=== PATIENT | female | born 1995 | race Caucasian/White ===

== ENCOUNTER 2017-01-02 18:25 | Observation (INO) | payer OTHER ==
--- NOTE | 2017-01-02 19:06 | ER Document Report ---
Addendum entered and electronically signed by KURTIS GILMAN PA-C 01/02/17 19: 18: Course - Re-evaluation Re-evalutation: 01/02/17 19:08 AMS oriented to person, not oriented to place or time. patient with equal strength, can follow directions and answers to name - Vital Signs Vital signs: Temp Pulse Resp BP Pulse Ox 70 24 H 136/98 H 99 01/02/17 18:53 01/02/17 18:53 01/02/17 18:53 01/02/17 18:53 Original Note: ED Medical Screen (RME) - General Stated Complaint: HEAD/BACK PAIN Notes: 3 weeks ago has been in [facility], back pain now with extremity numbness she has had a recent lumbar puncture 2/ to eval for meningitis which was negative. patient now with worsening headaches that are refractory to medications I have greeted and performed a rapid initial assessment of this patient. A comprehensive ED assessment and evaluation of the patient, analysis of test results and completion of the medical decision making process will be conducted by additional ED providers. - Related Data Allergies/Adverse Reactions: No Known Allergies Allergy (Unverified 01/02/17 18:58) Physical Exam - Vital signs Vitals: Pulse Resp BP Pulse Ox 70 24 H 136/98 H 99 01/02/17 18:53 01/02/17 18:53 01/02/17 18:53 01/02/17 18:53 Course - Vital Signs Vital signs: Temp Pulse Resp BP Pulse Ox 70 24 H 136/98 H 99 01/02/17 18:53 01/02/17 18:53 01/02/17 18:53 01/02/17 18:53
[2017-01-02] MEDS ORDERED: ONDANSETRON HCL INJ/PF 4 MG/2 ML SDV IV ONE (19:16)
[2017-01-02] MEDS ORDERED: HYDROMORPHONE HCL INJ/PF 2 MG/ML AMPULE IV ONE (19:16)
[2017-01-02 19:38] LABS: ABSOLUTE EOSINOPHILS # (AUTO) 0.1 10^3/uL (0.0-0.6); ABSOLUTE LYMPHOCYTES (AUTO) 1.7 10^3/uL (0.5-4.7); ABSOLUTE MONOCYTES (AUTO) 0.5 10^3/uL (0.1-1.4); ABSOLUTE NEUT (AUTO) 6.8 10^3/uL (1.7-8.2); BASOPHILS % (AUTO) 0.4 % (0-2); EOSINOPHILS % (AUTO) 0.7 % (0-6); HEMATOCRIT 46.9 % (36.0-47.0); HEMOGLOBIN 16.1 g/dL (12.0-15.5); HGB HCT DIFFERENCE 1.4; LYMPHOCYTES % (AUTO) 18.8 % (13-45); MEAN CORPUSCULAR HEMOGLOBIN 30.4 pg (27.0-33.4); MEAN CORPUSCULAR HGB CONC 34.3 g/dL (32.0-36.0); MEAN CORPUSCULAR VOLUME 89 fl (80-97); MONOCYTES % (AUTO) 5.9 % (3-13); RED BLOOD COUNT 5.29 10^6/uL (3.72-5.28); RED CELL DISTRIBUTION WIDTH 12.9 % (11.5-14.0); SEGMENTED NEUTROPHILS % (AUTO) 74.2 % (42-78); WHITE BLOOD COUNT 9.1 10^3/uL (4.0-10.5)
[2017-01-02 20:00] LABS: ALANINE AMINOTRANSFERASE 25 U/L (9-52); ALBUMIN 4.3 g/dL (3.5-5.0); ALKALINE PHOSPHATASE 64 U/L (38-126); ANION GAP 11 (5-19); ASPARTATE AMINO TRANSFERASE 14 U/L (14-36); BILIRUBIN,TOTAL 0.5 mg/dL (0.2-1.3); BLOOD UREA NITROGEN 17 mg/dL (7-20); CALCIUM 9.9 mg/dL (8.4-10.2); CARBON DIOXIDE 30 mmol/L (22-30); CHLORIDE 97 mmol/L (98-107); CREATININE RESULT 0.77 mg/dL (0.52-1.25); GLUCOSE 125 mg/dL (75-110); POTASSIUM 4.1 mmol/L (3.6-5.0); SODIUM 138.3 mmol/L (137-145); TOTAL PROTEIN 7.4 g/dL (6.3-8.2)
[2017-01-02] MEDS ORDERED: KETAMINE HCL INJ 500 MG/10 ML VIAL IV ONE (22:13)
[2017-01-02] MEDS ORDERED: NORMAL SALINE 1000 ML 1,000 ML IV ONE (22:25)
[2017-01-03] MEDS ORDERED: FENTANYL CITRATE INJ/PF 100 MCG/2 ML AMPUL IV ONE (01:05)
[2017-01-03] MEDS ORDERED: DEXAMETHASONE SOD PHOS INJ 10 MG/1 ML VIAL IV ONE (01:06)
--- NOTE | 2017-01-03 01:07 | ER Document Report ---
ED General - General Chief Complaint: Headache Stated Complaint: HEAD/BACK PAIN TRAVEL OUTSIDE OF THE [place] IN LAST 30 DAYS: No - Related Data Allergies/Adverse Reactions: Penicillins Allergy (Verified 01/02/17 19:04) Past Medical History - Social History Smoking Status: Never Smoker Chew tobacco use (# tins/day): No Frequency of alcohol use: None Drug Abuse: None Family History: Reviewed & Not Pertinent Patient has suicidal ideation: No Patient has homicidal ideation: No Renal/ Medical History: Denies: Hx Peritoneal Dialysis Physical Exam - Vital signs Vitals: Pulse Resp BP Pulse Ox 70 24 H 136/98 H 99 01/02/17 18:53 01/02/17 18:53 01/02/17 18:53 01/02/17 18:53 Course - Re-evaluation Re-evalutation: 01/03/17 01:06 Despite the ketamine patient still has severe headache. Was able to get an MRV. This was negative for venous sinus thrombosis. I did recommend a MRI with contrast to better evaluate. Patient had an MRI or contrast at [facility] and they did bring the report for that and that was negative. Patient has already had a lumbar puncture which was negative and therefore I do not think repeating a lumbar puncture would be helpful. We'll try fentanyl to see if this helps her headache. I will also give her Decadron. 01/03/17 01:07 - Vital Signs Vital signs: Temp Pulse Resp BP Pulse Ox 70 24 H 136/98 H 99 01/02/17 18:53 01/02/17 18:53 01/02/17 18:53 01/02/17 18:53 - Laboratory Result Diagrams: 01/02/17 19:24 01/02/17 19:24 Laboratory results interpreted by me: 01/02/17 01/02/17 19:24 19:24 RBC 5.29 H Hgb 16.1 H Chloride 97 L Glucose 125 H - Transfer of Care Notes: 01/03/17 04:18 I did speak with the hospitalist, Dr. Romero, about the patient because of her intractable headache. She does have some improvement with medications I've given her. Portal seem to have the most effect on her. She still has headache however and still looks uncomfortable. I did obtain an MRV to rule out venous sinus thrombosis. This is negative but the radiologist still suggested an MRI with contrast to further delineate. She has already had an MRI with contrast and has brought the results with her. This was completely negative and therefore I do not feel that a repeat is needed here. She's had CT scans which have been negative. She did bring her discharge summary from [facility] and it did show the lumbar puncture is being negative as well. I will not repeat the lumbar puncture here. I do not see evidence of neck imaging when reviewing her records from [facility]. I therefore obtained a CT angio of the neck to make sure there is no evidence of dissection of the neck. This was also negative. I suspect the patient has new-onset severe intractable migraines. The medication she is on is obviously currently not working for her. Dr. Romero recommended that I speak with , neurologist, to make sure that he be willing to come in and evaluate the patient if she is admitted. I was able to get in touch with Dr. Hair on his cell phone via the hospital addressing machine operator. I did inform of the patient's case. He said that he would be willing to see the patient in the hospital today via consult. Patient and her are very appreciative of this and agree with plan. Patient will be admitted for further management treatment of her intractable headache. Dictation of this chart was performed using voice recognition software; therefore, there may be some unintended grammatical errors. Discharge - Discharge Clinical Impression: Headache Qualifiers: Headache type: unspecified Headache chronicity pattern: chronic headache Intractability: intractable Qualified Code(s): R51 - Headache Condition: Stable Disposition: ADMITTED OBSERVATION Admitting Provider: Hospitalist Unit Admitted: Telemetry
[2017-01-03] MEDS ORDERED: KETOROLAC TROMETHAMINE INJ/PF 30 MG/1 ML SDV IV ONE (02:05)
[2017-01-03 05:19] LABS: URINE BARBITURATES SCREEN NEGATIVE; URINE METHADONE SCREEN NEGATIVE; URINE OPIATES LOW NEGATIVE; URINE PHENCYCLIDINE SCREEN NEGATIVE
[2017-01-03] MEDS ORDERED: ACETAMINOPHEN 325 MG TABLET PO PRN (05:39)
[2017-01-03] MEDS ORDERED: MAG HYDROX/AL HYDROX/SIMETH SUSP 30 ML UDCUP PO PRN (05:39)
[2017-01-03] MEDS ORDERED: MAGNESIUM HYDROXIDE SUSP 30 ML UDCUP PO PRN (05:39)
[2017-01-03] MEDS ORDERED: IPRATROPIUM/ALBUTEROL 0.5-2.5 MG/3 ML AMPUL NEB PRN (05:39)
[2017-01-03] MEDS ORDERED: OXYCODONE HCL IR 5 MG TABLET PO PRN (05:42)
--- NOTE | 2017-01-03 05:56 | PDOC H&P ---
History of Present Illness Admission Date/PCP: 01/03/17 04:41 Patient complains of: intractable headache History of Present Illness: ZULEIMA BELTRÁN is a 21 year old female, basically healthy other than rare problems with asthma, along with mild eczema, who presents to the emergency room for evaluation of intractable headache. Started approximately 4 weeks ago. Generalized throughout her cranium, with some radiation down her neck. Has had quite extensive workup at , including lumbar puncture and MR studies along with CT scans earlier this week. Please refer to emergency room physician notes concerning the specific studies that have been performed. discharged from earlier this week, with instructions that an outpatient appointment for further neurologic workup would be obtained. Still has not been formalized. Returns to the emergency room tonight with ongoing quite severe pain to the point where she can barely talk at times. No nausea vomiting this week. No fever or chills. No prior head or neck injury. Negative neurologic history otherwise, including seizure stroke TIA or mini stroke. No history of migraines in herself, but father does carry a history of migraines. Patient has been discussed with emergency room physician who evaluated the patient. ER physician also spoke with our on-call neurologist Dr. Hair, who has agreed to see the patient in consultation. . Laboratory results are listed in [facility] and are reviewed. X-ray summary results are listed below, with full report(s) reviewed. . EKG reviewed. And compared to a tracing from 05/06/2014. Social history/personal habits: . No children. 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 states she does not use chemicals. No use of alcohol tobacco or illicit drugs. Allergies/adverse reactions are listed in [facility] and are reviewed. Uncertain reaction to penicillin; occurred as a child. Uncertain if she can tolerate cephalosporins. Home medications none REVIEW OF SYSTEMS: Constitutional: No fever or chills. Eyes: Wears glasses. ENT: No swallowing problems or complaints. No hearing problems or complaints. Pulmonary: No current complaints. Cardiovascular: No current complaints, including chest pain. Gastrointestinal: No current complaints, including nausea or vomiting. Skin: Mild eczema. Hematologic: No unusual easy bruising or bleeding. Neurologic: See history and present illness. Musculoskeletal: No current complaints, including painful joints. Psychiatric: No current complaints, including anxiety or depression. Endocrine: No current complaints, including polyuria. Genitourinary: No current complaints, including dysuria. PHYSICAL EXAMINATION: 5 feet 8 inches tall. 58.2 kg. BMI 19.5 kg/m. Temperature is not recorded on the chart. Pulse 70. Blood pressure 136/98. Respirations are 24 and unlabored. 98% saturation on room air. is present at her side; patient approves. Female emergency room nurse Carla is present. Thin otherwise well-developed young female who appears approximately her stated age. Appears to feel perhaps a bit under the weather, so to speak. Slightly drowsy also. Otherwise, pleasant awake alert and cooperative. Skin is warm and dry. No grossly obvious evidence of rash in areas of skin examined. No subcutaneous nodules palpated. ENT: Hearing grossly normal to normal conversation. Tongue midline on protrusion pink and slightly moist. Eyes: No scleral icterus. Pupils equal and reactive to light at 4 mm. [place] conjunctivae. Neck is supple to gentle active range of motion. Very mild tenderness posteriorly to palpation. Midline trachea. No palpable thyroid nodule mass enlargement or tenderness. Lymphatic: No palpable cervical or clavicular nodes. Psychiatric: Reasonable insight into acute and chronic medical issues. Oriented to time location and why here. Lungs: Auscultation reveals clear and equal breath sounds bilaterally. No use of accessory respiratory muscles. Cardiovascular: Heart regular rate and rhythm, without gallop murmur or rub. No carotid or abdominal aortic bruits. No ankle or pedal edema. palpable dorsalis pedis pulses. Abdomen: soft , slightly distended nontender with positive bowel sounds. Unable to adequately evaluate abdomen for masses or organomegaly due to distention. Extremities: Feet are warm and dry. No calf tenderness to compression. No grossly obvious visual evidence of calf swelling. Gentle manipulation of lower extremities fails to reveal any obvious evidence of injury or instability to knees hips or ankles. Neurologic: Cranial Nerves II through XII are grossly intact. Light touch intact at face, upper and lower extremities. Motor function of major muscle groups upper and lower extremities 5 over 5 and symmetric. Patellar reflexes absent. Absent Babinski. No nystagmus. No ankle clonus. Past Medical History Cardiac Medical History: Denies: Congestive Heart Failure, DVT, Myocardial Infarction, Hyperlipidema, Hypertension, Pulmonary Embolism Pulmonary Medical History: Reports: Asthma EENT Medical History: Reports: Eyes - Glasses Denies: Ears, Throat Neurological Medical History: Reports: Other - Headaches Denies: Hemorrhagic CVA, Ischemic CVA, Seizures Endocrine Medical History: Denies: Diabetes Mellitus Type 1, Diabetes Mellitus Type 2, Hyperthyroidism, Hypothyroidism Renal/ Medical History: Reports: None GI Medical History: Denies: Cirrhosis, Gastroesophageal Reflux Disease, Hepatitis, Peptic Ulcer Disease Musculoskeltal Medical History: Denies: Arthritis Skin Medical History: Reports: Eczema Psychiatric Medical History: Denies: Alcohol Dependency, Depression, General Anxiety Disorder, Substance Abuse, Tobacco Dependency Hematology: Reports: Other - Easy bruising Infectious Medical History: Denies: Hepatitis B, Hepatitis C Past Surgical History Past Surgical History: Reports: Other - [place] teeth extraction Social History Information Source: Patient, Emergency Med Personnel, [facility] Records Lives with: Spouse/Significant other Smoking Status: Never Smoker Frequency of Alcohol Use: None Drugs: None - Advance Directive Resuscitation Status: Full Code Surrogate healthcare decision maker:: Family History Family History: Reviewed & Not Pertinent, Other - Migraine headaches in father Parental Family History Reviewed: Yes Children Family History Reviewed: NA Sibling(s) Family History Reviewed.: Yes Medication/Allergy Home Medications: Acetaminophen [Tylenol 325 mg Tablet] 650 mg PO Q4HP PRN tablet 01/03/17 Amitriptyline HCl [Elavil 50 mg Tablet] 50 mg PO QHS #30 tablet 01/03/17 Ondansetron [Zofran Odt 4 mg Tablet] 1 - 2 tab PO Q4HP PRN #10 tab.rapdis Prednisone [Deltasone 10 mg Tablet] 30 mg PO DAILY #12 tablet 01/03/17 Sumatriptan Succinate [Imitrex 50 mg Tablet] 50 mg PO Q2HP PRN tablet 01/03/17 Tramadol HCl 50 mg PO Q6HP PRN #30 tablet 01/03/17 Allergies/Adverse Reactions: Penicillins Allergy (Verified 01/03/17 06:30) Unknown reaction Physical Exam Vital Signs: Temp Pulse Resp BP Pulse Ox 70 24 H 136/98 H 99 01/02/17 18:53 01/02/17 18:53 01/02/17 18:53 01/02/17 18:53 Results Impressions: Brain MRI with MRA 01/02/17 22:24 IMPRESSION: 1. Attenuated sinuses as above is felt to be likely related to hypoplasia or slow flow. Significant venous sinus thrombus is felt to be less likely. If clinical concern remains high, further MRI of the brain to include post IV contrast images may prove helpful. Neck CTA 01/03/17 03:11 IMPRESSION: NORMAL CTA OF THE EXTRA-CRANIAL CAROTID AND VERTEBRAL ARTERIES. Assessment & Plan - Diagnosis (1) Elevated blood pressure reading without diagnosis of hypertension Is this a current diagnosis for this admission?: YesPlan: Likely due to pain. Follow clinically at this time. When necessary medication. (2) DVT prophylaxis Is this a current diagnosis for this admission?: Yes (3) Headache Qualifiers: Headache type: unspecified Headache chronicity pattern: chronic headache Intractability: intractable Qualified Code(s): R51 - Headache Is this a current diagnosis for this admission?: YesPlan: When necessary pain medication. Neurology consult. I have strongly encouraged patient not to get out of bed without notifying staff , to avoid a fall with injury. Knee high SCDs for DVT prophylaxis; due to patient's young age, and the fact that she may very well be discharged later today, will forego Lovenox or heparin at this point in time. Impression and plans were discussed with patient, and , both of whom concur.. Time spent in evaluation and management of patient: 53 minutes. (4) Asthma Qualifiers: Asthma severity: mild intermittent Asthma complication type: uncomplicated Qualified Code(s): J45.20 - Mild intermittent asthma, uncomplicated Is this a current diagnosis for this admission?: YesPlan: When necessary [facility].
[2017-01-03] MEDS ORDERED: DOCUSATE SODIUM 100 MG CAPSULE PO SCH (10:00)
[2017-01-03] MEDS ORDERED: SUMATRIPTAN SUCCINATE 50 MG TABLET PO PRN (14:17)
[2017-01-03] MEDS ORDERED: PREDNISONE 10 MG TABLET PO ONE (15:30)
--- NOTE | 2017-01-03 16:04 | PDOC DISCHARGE SUMMARY ---
General - Admit/Disc Date/PCP Admission Date/Primary Care Provider: 01/03/17 05:39 Primary care provider: Ten Bowen Neurology: Dr. Hair Discharge Date: 01/03/17 - Discharge Diagnosis (1) Headache Is this a current diagnosis for this admission?: Yes (2) Asthma Is this a current diagnosis for this admission?: Yes - Additional Information Resuscitation Status: Full Code Discharge Diet: Regular Discharge Activity: Activity As Tolerated Home Medications: Acetaminophen [Tylenol 325 mg Tablet] 650 mg PO Q4HP PRN tablet 01/03/17 Amitriptyline HCl [Elavil 50 mg Tablet] 50 mg PO QHS #30 tablet 01/03/17 Ondansetron [Zofran Odt 4 mg Tablet] 1 - 2 tab PO Q4HP PRN #10 tab.rapdis Prednisone [Deltasone 10 mg Tablet] 30 mg PO DAILY #12 tablet 01/03/17 Sumatriptan Succinate [Imitrex 50 mg Tablet] 50 mg PO Q2HP PRN tablet 01/03/17 Tramadol HCl 50 mg PO Q6HP PRN #30 tablet 01/03/17 History of Present Illness Patient complains of: Headache History of Present Illness: ZULEIMA BELTRÁN is a 21 year old female, basically healthy other than rare problems with asthma, along with mild eczema, who presents to the emergency room for evaluation of intractable headache. Started approximately 4 weeks ago. Generalized throughout her cranium, with some radiation down her neck. Has had quite extensive workup at , including lumbar puncture and MR studies along with CT scans earlier this week. Please refer to emergency room physician notes concerning the specific studies that have been performed. Patient was discharged from earlier this week, with instructions that an outpatient appointment for further neurologic workup would be obtained. Still has not been formalized. Returns to the emergency room tonight with ongoing quite severe pain to the point where she can barely talk at times. Hospital Course Hospital Course: Patient presents to the emergency department for evaluation of headaches with intractable pain. She is admitted to the hospital for further evaluation and neurology consultation. Patient was very comfortable at the time of my visit sitting up in bed and answering questions appropriate. She was seen by Dr. Hair of neurology and it was advised that we send patient home on a steroid taper and have her follow-up with him as an outpatient. Patient is to continue previously prescribed Elavil nightly, Imitrex when necessary. I will prescribe prednisone taper as well as when necessary tramadol. Physical Exam Vital Signs: Temp Pulse Resp BP Pulse Ox 98.3 F 69 12 118/67 100 01/03/17 15:04 01/03/17 15:29 01/03/17 15:29 01/03/17 15:04 01/03/17 15:29 Intake & Output 01/02/17 01/03/17 01/04/17 06:59 06:59 06:59 Weight 58.1 kg GENERAL: No acute distress HEENT: Conjunctiva clear, nonicteric, moist mucous membranes, no JVD, midline trachea RESPIRATORY: Clear to auscultation bilaterally, no wheezes, no rhonchi CARDIAC: Regular rate and rhythm, no murmurs/gallops/rubs ABDOMEN: Soft, nondistended, nontender, positive bowel sounds, no rebound, no guarding EXTREMETIES: No edema, cyanosis, clubbing NEUROLOGIC: Alert, oriented to person/place/time, CN's grossly intact, no focal deficits SKIN: No rash, wounds PSYCH: Normal mood, normal affect Results Laboratory Results: Labs- Last Values WBC 9.1 10^3/uL (4.0-10.5) 01/02/17 19:24 RBC 5.29 10^6/uL (3.72-5.28) H 01/02/17 19:24 Hgb 16.1 g/dL (12.0-15.5) H 01/02/17 19:24 Hct 46.9 % (36.0-47.0) 01/02/17 19:24 MCV 89 fl (80-97) 01/02/17 19:24 MCH 30.4 pg (27.0-33.4) 01/02/17 19:24 MCHC 34.3 g/dL (32.0-36.0) 01/02/17 19:24 RDW 12.9 % (11.5-14.0) 01/02/17 19:24 Plt Count 234 10^3/uL (150-450) 01/02/17 19:24 Seg Neutrophils % 74.2 % (42-78) 01/02/17 19:24 Lymphocytes % 18.8 % (13-45) 01/02/17 19:24 Monocytes % 5.9 % (3-13) 01/02/17 19:24 Eosinophils % 0.7 % (0-6) 01/02/17 19:24 Basophils % 0.4 % (0-2) 01/02/17 19:24 Absolute Neutrophils 6.8 10^3/uL (1.7-8.2) 01/02/17 19:24 Absolute Lymphocytes 1.7 10^3/uL (0.5-4.7) 01/02/17 19:24 Absolute Monocytes 0.5 10^3/uL (0.1-1.4) 01/02/17 19:24 Absolute Eosinophils 0.1 10^3/uL (0.0-0.6) 01/02/17 19:24 Absolute Basophils 0.0 10^3/uL (0.0-0.2) 01/02/17 19:24 Sodium 138.3 mmol/L (137-145) 01/02/17 19:24 Potassium 4.1 mmol/L (3.6-5.0) 01/02/17 19:24 Chloride 97 mmol/L (98-107) L 01/02/17 19:24 Carbon Dioxide 30 mmol/L (22-30) 01/02/17 19:24 Anion Gap 11 (5-19) 01/02/17 19:24 BUN 17 mg/dL (7-20) 01/02/17 19:24 Creatinine 0.77 mg/dL (0.52-1.25) 01/02/17 19:24 Est GFR ( Amer) > 60 (>60) 01/02/17 19:24 Est GFR (Non-Af Amer) > 60 (>60) 01/02/17 19:24 Glucose 125 mg/dL (75-110) H 01/02/17 19:24 Calcium 9.9 mg/dL (8.4-10.2) 01/02/17 19:24 Total Bilirubin 0.5 mg/dL (0.2-1.3) 01/02/17 19:24 Direct Bilirubin 0.0 mg/dL (0.0-0.3) 01/02/17 19:24 AST 14 U/L (14-36) 01/02/17 19:24 ALT 25 U/L (9-52) 01/02/17 19:24 Alkaline Phosphatase 64 U/L (38-126) 01/02/17 19:24 Total Protein 7.4 g/dL (6.3-8.2) 01/02/17 19:24 Albumin 4.3 g/dL (3.5-5.0) 01/02/17 19:24 Serum HCG, Qual NEGATIVE (NEGATIVE) 01/02/17 19:24 Urine Opiates Screen NEGATIVE 01/03/17 04:41 Urine Methadone Screen NEGATIVE 01/03/17 04:41 Ur Barbiturates Screen NEGATIVE 01/03/17 04:41 Ur Phencyclidine Scrn NEGATIVE 01/03/17 04:41 Ur Amphetamines Screen NEGATIVE 01/03/17 04:41 U Benzodiazepines Scrn NEGATIVE 01/03/17 04:41 Urine Cocaine Screen NEGATIVE 01/03/17 04:41 U Marijuana (THC) Screen NEGATIVE 01/03/17 04:41 Impressions: Brain MRI with MRA 01/02/17 22:24 IMPRESSION: 1. Attenuated sinuses as above is felt to be likely related to hypoplasia or slow flow. Significant venous sinus thrombus is felt to be less likely. If clinical concern remains high, further MRI of the brain to include post IV contrast images may prove helpful. Neck CTA 01/03/17 03:11 IMPRESSION: NORMAL CTA OF THE EXTRA-CRANIAL CAROTID AND VERTEBRAL ARTERIES. Qualifiers PATEINT BEING DISCHARGED WITH ANY OF THE FOLLOWING DIAGNOSIS?: No Plan Discharge Plan: Follow-up with primary care provider. Follow-up with neurology. Time Spent: Less than 30 Minutes
[2017-01-03 16:37] VITALS: BP 126/69
[2017-01-04] MEDS ORDERED: PREDNISONE 10 MG TABLET PO SCH (10:00)
[2017-01-07] MEDS ORDERED: PREDNISONE 20 MG TABLET PO SCH (10:00)
[2017-01-09] MEDS ORDERED: PREDNISONE 10 MG TABLET PO SCH (10:00)
== END 2017-01-03 17:04 | disposition home or self-care (01) ==
LOC: ER 18:25 → EH 01-03 04:41 → UNDOADMOB 01-03 04:41 → EH 01-03 05:39 → 3N 01-03 06:14
PROVIDERS: ADMIT Family Medicine; ATTEND Family Medicine
DX: R51 Headache (principal); R03.0 Elevated blood-pressure reading, without diagnosis of hypertension; J45.909 Unspecified asthma, uncomplicated; Z79.899 Other long term (current) drug therapy; Z88.0 Allergy status to penicillin
CPT/HCPCS: 99285; 96361; 96374; 96375; 36415; 84703; 85025; 80053; 80307; 70544; 70498; G0378; J3010; J3490 ×2; J1885; J1170; J7512; J2405; J7030; J1100